=== PATIENT | male | born 1995 | race Caucasian/White ===

== ENCOUNTER 2019-04-20 19:17 | Emergency (ER) | payer OTHER ==
[2019-04-20] MEDS ORDERED: Ibuprofen TAB* 600 MG PO ONE (20:39)
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
[2019-04-20 20:56] VITALS: BP 133/65
--- NOTE | 2019-04-21 15:45 | PN ---
Progress Note - Progress Note Date of Service: 04/20/19 Note: Final read per radiology: IMPRESSION: Cortical discontinuity along the radial aspect of the distal radial metaphysis could be applications sales representative of incomplete fusion of the physis or a nondisplaced fracture. Correlate with point tenderness. R2 Pt. placed in thumb spica in ED. I spoke with pt. today at 1545 and gave him INFO for orthopedic clinic. Pt. to call office today for f.u apt. kavita and to keep splint in place. Pt. understands and agrees with plan.
== END 2019-04-20 20:55 | disposition home or self-care (01) ==
LOC: ED 19:17
DX: S69.91XA Unspecified injury of right wrist, hand and finger(s), initial encounter (principal); S60.511A Abrasion of right hand, initial encounter; V18.0XXA Pedal cycle driver injured in noncollision transport accident in nontraffic accident, initial encounter; Y93.55 Activity, bike riding; Y92.9 Unspecified place or not applicable; Z88.8 Allergy status to other drugs, medicaments and biological substances
CPT/HCPCS: 99282; A9270-GY